=== PATIENT | male | born 1960 | race African-American/Black ===

== ENCOUNTER 2022-01-17 00:19 | Emergency (ER) | payer OTHER ==
[~2022-01-17] VITALS: Ht 185.4 cm; Wt 81.8 kg
[~2022-01-17 00:19] MED LIST: NOCURR
[2022-01-17] MEDS ORDERED: SODIUM CHLORIDE 0.9% 1,000 ML IV ONE (00:45)
[2022-01-17] MEDS ORDERED: LevETIRAcetam 1,000 MG in DEXTROSE 5%-WATER 100 ML IV ONE (00:45)
[2022-01-17 01:02] LABS: BASOPHILS % (AUTO) 0.6 % (0.0-2.0); EOSINOPHILS % (AUTO) 0 % (1.0-6.0); HEMOGLOBIN 11.9 g/dL (13.5-17.5); LYMPHOCYTES # (AUTO) 0.3 K/uL (1.0-4.8); LYMPHOCYTES % (AUTO) 4.1 % (22.0-44.0); MEAN CORPUSCULAR HEMOGLOBIN 34.7 pg (26.0-34.0); MEAN CORPUSCULAR HGB CONC 34.2 G/dL (31.0-37.0); MEAN CORPUSCULAR VOLUME 102 fL (80-100); MONOCYTES # (AUTO) 0.8 K/uL (0.1-1.0); MONOCYTES % (AUTO) 12.6 % (2.0-9.0); NEUTROPHILS # (AUTO) 5.3 K/uL (1.8-7.7); NEUTROPHILS % (AUTO) 82.7 % (40.0-70.0); PLATELET COUNT (AUTO) 203 K/uL (150-450); RED BLOOD CELL COUNT(AUTO) 3.44 MIL/uL (4.50-5.90); RED CELL DISTRIBUTION WIDTH 14.7 % (11.5-14.5)
[2022-01-17 01:09] LABS: ANION GAP 8 mmol/L (8-16); CALCIUM, TOTAL 9.1 mg/dL (8.8-10.5); CARBON DIOXIDE 26 mmol/L (22-29); CHLORIDE 102 mmol/L (98-107); CREATININE 1.35 mg/dL (0.60-1.30); GLUCOSE,RANDOM 138 mg/dL (70-110); POTASSIUM 4.1 mmol/L (3.5-5.1); SODIUM SERUM 136 mmol/L (136-145); UREA NITROGEN, BLOOD 7 mg/dL (7-18)
[2022-01-17 01:14] LABS: GLOMERULAR FILTR. RATE CALC > 60 mL/min (>60)
[2022-01-17 01:15] LABS: ALANINE AMINOTRANSFERASE 112 U/L (12-78); ALBUMIN 3.5 g/dL (3.4-5.0); ALKALINE PHOSPHATASE 150 U/L (46-116); ASPARTATE AMINOTRANSFERASE 150 U/L (15-37); BILIRUBIN,TOTAL 0.7 mg/dL (0.1-1.0); TOTAL PROTEIN, SERUM 8.7 g/dL (6.4-8.2)
[2022-01-17 01:19] LABS: LACTIC ACID 3.6 mmol/L (0.4-2.0)
[2022-01-17 01:48] LABS: COVID AG,FIA SOURCE NASAL SWAB
[2022-01-17 02:10] LABS: INFLUENZA TYPE A NEGATIVE FOR TYPE A (NEGATIVE); INFLUENZA TYPE B NEGATIVE FOR TYPE B (NEGATIVE)
[2022-01-17 04:54] VITALS: BP 182/89
== END 2022-01-17 05:15 | disposition home or self-care (01) ==
LOC: EMS 00:20
DX: R56.9 Unspecified convulsions (principal); F17.210 Nicotine dependence, cigarettes, uncomplicated; Z98.890 Other specified postprocedural states; Z20.822 Contact with and (suspected) exposure to COVID-19
CPT/HCPCS: 99285; 96365; 71045; 87426; 80053; 82962; 83605; 85025; 87804; 36415; 93005; J0712; J7060; J7030

== ENCOUNTER 2023-05-22 13:02 | Inpatient (IN) | payer OTHER ==
[~2023-05-22] VITALS: Ht 185.4 cm; Wt 79.8 kg
[~2023-05-22 13:02] MED LIST changes: +LEVE750T10 PO; -NOCURR
[2023-05-22] MEDS ORDERED: ASPI81TA39 PO (15:07)
[2023-05-22] MEDS ORDERED: AMLO5TAB4 PO (15:08)
[2023-05-22] MEDS ORDERED: CLOP75TA60 PO (15:08)
[2023-05-22] MEDS ORDERED: PANT40TA54 PO (15:09)
[2023-05-22] MEDS ORDERED: ACET650S14 PR (15:10)
[2023-05-22] MEDS ORDERED: BISA10SU61 PR (15:11)
[2023-05-22] MEDS ORDERED: MAGN-169 PO (15:12)
[2023-05-22] MEDS ORDERED: ZOLP5TAB2 PO (15:13)
[2023-05-22] MEDS ORDERED: LEVE750T4 PO (15:15)
[2023-05-22] MEDS ORDERED: ACET-2247 PO (15:17)
[2023-05-22 21:00] VITALS: BP 196/103; PULSE 70; RESP 18; TEMP 98.3; O2SAT 100
[2023-05-22 21:30] VITALS: BP 179/99; PULSE 77; RESP 18; O2SAT 100
[2023-05-22] MEDS ORDERED: ACETAMINOPHEN 325 MG TABLET PO PRN (22:00)
[2023-05-22] MEDS ORDERED: BISACODYL 10 MG RECTAL RECTAL SUPPOSITORY PR PRN (22:15)
[2023-05-22] MEDS ORDERED: DOCUSATE SODIUM 100 MG CAPSULE PO SCH (22:15)
[2023-05-22] MEDS: SENNOSIDES 8.6 MG TABLET PO SCH (22:54)
[2023-05-22] MEDS: DOCUSATE SODIUM 100 MG CAPSULE PO SCH (22:54)
[2023-05-22] MEDS: LevETIRAcetam 250 MG TABLET PO SCH (22:55)
[2023-05-22] MEDS: HydrALAZINE HCL 20 MG/ML VIAL IVP PRN (22:56)
[2023-05-22] MEDS: ETHYL ALCOHOL 62% ANTISEPTIC NASAL SANITIZER 0.6 ML AMPUL NASAL SCH (22:59)
[2023-05-22] MEDS: ATORVASTATIN CALCIUM 20 MG TABLET PO SCH (23:00)
[2023-05-22 23:13] VITALS: BP 179/99; PULSE 77; RESP 18; O2SAT 100
[2023-05-23 06:12] VITALS: BP 157/87; PULSE 74
[2023-05-23] MEDS: PANTOPRAZOLE SODIUM 40 MG DR TABLET PO SCH (07:56)
[2023-05-23] MEDS: AmLODIPine BESYLATE 5 MG TABLET PO SCH (07:56)
[2023-05-23] MEDS: CLOPIDOGREL BISULFATE 75 MG TABLET PO SCH (07:56)
[2023-05-23] MEDS: ASPIRIN 81 MG CHEWABLE TABLET PO SCH (07:56)
[2023-05-23] MEDS: 0.9% SODIUM CHLORIDE 10 ML SYRINGE IVP SCH (08:02)
[2023-05-23 08:28] VITALS: BP 140/88; PULSE 78; RESP 18; TEMP 98.4; O2SAT 98
[2023-05-23 08:33] VITALS: O2SAT 98
[2023-05-23 08:58] LABS: BASOPHILS % (AUTO) 0.6 % (0.0-2.0); EOSINOPHILS % (AUTO) 0.5 % (1.0-6.0); HEMOGLOBIN 12.7 g/dL (13.5-17.5); MEAN CORPUSCULAR HEMOGLOBIN 34.3 pg (26.0-34.0); MEAN CORPUSCULAR HGB CONC 34.2 G/dL (31.0-37.0); MEAN CORPUSCULAR VOLUME 100 fL (80-100); MONOCYTES # (AUTO) 0.8 K/uL (0.1-1.0); MONOCYTES % (AUTO) 17.9 % (2.0-9.0); NEUTROPHILS # (AUTO) 2.7 K/uL (1.8-7.7); PLATELET COUNT (AUTO) 253 K/uL (150-450); RED BLOOD CELL COUNT(AUTO) 3.69 MIL/uL (4.50-5.90); RED CELL DISTRIBUTION WIDTH 13.2 % (11.5-14.5); WHITE BLOOD COUNT (AUTO) 4.6 K/uL (4.5-11.0)
[2023-05-23 09:08] LABS: ALANINE AMINOTRANSFERASE 90 U/L (12-78); ALBUMIN 3.3 g/dL (3.4-5.0); ALKALINE PHOSPHATASE 68 U/L (46-116); ANION GAP 11 mmol/L (8-16); ASPARTATE AMINOTRANSFERASE 67 U/L (15-37); BILIRUBIN,TOTAL 0.6 mg/dL (0.1-1.0); CALCIUM, TOTAL 8.9 mg/dL (8.8-10.5); CARBON DIOXIDE 24 mmol/L (22-29); CHLORIDE 98 mmol/L (98-107); CREATININE 1.14 mg/dL (0.60-1.30); GLOMERULAR FILTR. RATE CALC > 60 mL/min (>60); GLUCOSE,RANDOM 124 mg/dL (70-110); POTASSIUM 3.6 mmol/L (3.5-5.1); SODIUM SERUM 133 mmol/L (136-145); TOTAL PROTEIN, SERUM 8.9 g/dL (6.4-8.2); UREA NITROGEN, BLOOD 9 mg/dL (7-18)
[2023-05-23] MEDS ORDERED: AmLODIPine BESYLATE 5 MG TABLET PO SCH (11:00)
[2023-05-23 20:12] VITALS: BP 161/93; PULSE 70; RESP 18; TEMP 98; O2SAT 100
[2023-05-23 20:27] VITALS: O2SAT 100
[2023-05-24 02:35] VITALS: BP 150/89; PULSE 69; RESP 20; O2SAT 98
[2023-05-24 08:00] VITALS: BP 152/87; PULSE 71; RESP 19; TEMP 98.3; O2SAT 99
[2023-05-24 19:47] VITALS: BP 173/88; PULSE 64; RESP 16; TEMP 98.1; O2SAT 99
[2023-05-24] MEDS: HydrALAZINE HCL 10 MG TABLET PO PRN (19:50)
[2023-05-24 20:13] VITALS: O2SAT 99
[2023-05-25 02:06] VITALS: BP 124/92; PULSE 67
[2023-05-25 08:00] VITALS: BP 156/89; PULSE 72; RESP 18; TEMP 98.4; O2SAT 98
[2023-05-25] MEDS: AmLODIPine BESYLATE 10 MG TABLET PO SCH (08:16)
[2023-05-25 09:10] VITALS: O2SAT 98
[2023-05-25 19:54] VITALS: BP 185/83; PULSE 71; RESP 19; TEMP 97.8; O2SAT 98
[2023-05-25 20:42] VITALS: O2SAT 97
[2023-05-25 22:00] VITALS: BP 158/86; PULSE 68
[2023-05-26 07:40] VITALS: BP 162/96; PULSE 76; RESP 18; TEMP 98; O2SAT 100
[2023-05-26] MEDS: DOCUSATE SODIUM 250 MG CAPSULE PO SCH (07:47)
[2023-05-26 08:39] VITALS: BP 149/76; PULSE 67
[2023-05-26 09:39] VITALS: O2SAT 100
[2023-05-26] MEDS: ZOLPIDEM TARTRATE 5 MG TABLET PO PRN (20:21)
[2023-05-26 21:00] VITALS: BP 143/55; PULSE 53; RESP 18; TEMP 98.1; O2SAT 97
[2023-05-27] MEDS: MAGNESIUM HYDROXIDE SUSPENSION 30 ML UDCUP PO PRN (06:06)
[2023-05-27 08:00] VITALS: BP 137/71; PULSE 52; RESP 18; TEMP 97.5; O2SAT 100
[2023-05-27] MEDS: LOSARTAN POTASSIUM 25 MG TABLET PO SCH (08:00)
[2023-05-27 08:05] VITALS: PULSE 68
[2023-05-27 20:01] VITALS: BP 149/80; PULSE 51; RESP 18; TEMP 98.7; O2SAT 100
[2023-05-27 20:48] VITALS: O2SAT 100
[2023-05-28] MEDS ORDERED: ATOR20TA PO (05:04)
[2023-05-28] MEDS ORDERED: DOCU-412 PO (05:05)
[2023-05-28 08:00] VITALS: BP 124/78; PULSE 92; RESP 18; TEMP 98.2; O2SAT 96
[2023-05-28] MEDS ORDERED: AMLO-258 PO (17:49)
[2023-05-28 20:00] VITALS: BP 134/67; PULSE 91; RESP 19; TEMP 98.2; O2SAT 97
[2023-05-28 20:05] VITALS: O2SAT 97
[2023-05-28] MEDS: SENNOSIDES 8.6 MG TABLET PO SCH (20:21)
[2023-05-29 08:00] VITALS: BP 140/82; PULSE 65; RESP 18; TEMP 98.3; O2SAT 100
[2023-05-29 08:18] LABS: ANION GAP 9 mmol/L (8-16); CALCIUM, TOTAL 8.6 mg/dL (8.8-10.5); CARBON DIOXIDE 24 mmol/L (22-29); CHLORIDE 97 mmol/L (98-107); CREATININE 1.21 mg/dL (0.60-1.30); GLOMERULAR FILTR. RATE CALC > 60 mL/min (>60); GLUCOSE,RANDOM 136 mg/dL (70-110); POTASSIUM 3.9 mmol/L (3.5-5.1); SODIUM SERUM 130 mmol/L (136-145); UREA NITROGEN, BLOOD 11 mg/dL (7-18)
[2023-05-29 08:19] VITALS: O2SAT 98
[2023-05-29 20:34] VITALS: BP 138/58; PULSE 57; RESP 19; TEMP 98.5; O2SAT 100
[2023-05-29 21:13] VITALS: O2SAT 100
[2023-05-30] VITALS (14 sets, daily range): BP systolic 122–151; BP diastolic 60–91; PULSE 70–97; RESP 18–20; TEMP 98.3–99.3; O2SAT 98–100
[2023-05-31 08:00] VITALS: BP 129/78; PULSE 84; RESP 18; TEMP 98.8; O2SAT 100
[2023-05-31 13:01] VITALS: BP 129/78; PULSE 84; RESP 18; TEMP 98.8; O2SAT 100
[2023-05-31 19:43] VITALS: BP 137/77; PULSE 74; RESP 18; TEMP 98.4; O2SAT 100
[2023-06-01 00:56] VITALS: O2SAT 100
[2023-06-01 08:00] VITALS: BP 124/82; PULSE 77; RESP 18; TEMP 98.6; O2SAT 100
[2023-06-01 11:07] VITALS: BP 124/82; PULSE 77; RESP 18; TEMP 98.6; O2SAT 100
[2023-06-01 20:00] VITALS: BP 136/68; PULSE 70; RESP 18; TEMP 98.9; O2SAT 99
[2023-06-01 21:00] VITALS: BP 136/68; PULSE 70; RESP 18; TEMP 98.9; O2SAT 99
[2023-06-02 06:47] LABS: BASOPHILS % (AUTO) 1.2 % (0.0-2.0); EOSINOPHILS % (AUTO) 1.6 % (1.0-6.0); HEMATOCRIT 33.7 % (41-53); HEMOGLOBIN 11.7 g/dL (13.5-17.5); LYMPHOCYTES % (AUTO) 23.1 % (22.0-44.0); MEAN CORPUSCULAR HEMOGLOBIN 33.8 pg (26.0-34.0); MEAN CORPUSCULAR HGB CONC 34.7 G/dL (31.0-37.0); MEAN CORPUSCULAR VOLUME 98 fL (80-100); MONOCYTES # (AUTO) 0.9 K/uL (0.1-1.0); MONOCYTES % (AUTO) 20.5 % (2.0-9.0); NEUTROPHILS # (AUTO) 2.4 K/uL (1.8-7.7); NEUTROPHILS % (AUTO) 53.6 % (40.0-70.0); PLATELET COUNT (AUTO) 323 K/uL (150-450); RED BLOOD CELL COUNT(AUTO) 3.45 MIL/uL (4.50-5.90); RED CELL DISTRIBUTION WIDTH 12.8 % (11.5-14.5); WHITE BLOOD COUNT (AUTO) 4.4 K/uL (4.5-11.0)
[2023-06-02 08:00] VITALS: BP 129/71; PULSE 65; RESP 18; TEMP 98.6; O2SAT 99
[2023-06-02 10:45] LABS: ANION GAP 7 mmol/L (8-16); CALCIUM, TOTAL 8.8 mg/dL (8.8-10.5); CARBON DIOXIDE 27 mmol/L (22-29); CHLORIDE 99 mmol/L (98-107); CREATININE 1.21 mg/dL (0.60-1.30); GLOMERULAR FILTR. RATE CALC > 60 mL/min (>60); GLUCOSE,RANDOM 118 mg/dL (70-110); POTASSIUM 4.8 mmol/L (3.5-5.1); SODIUM SERUM 133 mmol/L (136-145); UREA NITROGEN, BLOOD 14 mg/dL (7-18)
[2023-06-02 20:15] VITALS: BP 118/71; PULSE 71; RESP 19; TEMP 98.9; O2SAT 100
[2023-06-02 20:20] VITALS: O2SAT 100
[2023-06-02] MEDS: SODIUM CHLORIDE 1 GM TABLET PO SCH (20:41)
[2023-06-03 08:05] VITALS: BP 127/79; PULSE 72; RESP 18; TEMP 98.6; O2SAT 98
[2023-06-03 08:58] VITALS: O2SAT 98
[2023-06-03 20:40] VITALS: BP 137/78; PULSE 68; RESP 18; TEMP 98.2; O2SAT 100
[2023-06-04 07:40] VITALS: BP 125/70; PULSE 71; RESP 18; TEMP 98.8; O2SAT 100
[2023-06-04 09:05] VITALS: BP 128/74; PULSE 75; RESP 18; TEMP 98.6; O2SAT 98
[2023-06-04 09:08] LABS: ANION GAP 12 mmol/L (8-16); CALCIUM, TOTAL 8.9 mg/dL (8.8-10.5); CARBON DIOXIDE 22 mmol/L (22-29); CHLORIDE 101 mmol/L (98-107); CREATININE 1.31 mg/dL (0.60-1.30); GLOMERULAR FILTR. RATE CALC > 60 mL/min (>60); GLUCOSE,RANDOM 190 mg/dL (70-110); POTASSIUM 3.9 mmol/L (3.5-5.1); SODIUM SERUM 135 mmol/L (136-145); UREA NITROGEN, BLOOD 13 mg/dL (7-18)
[2023-06-04 09:52] VITALS: O2SAT 98
[2023-06-04] MEDS ORDERED: ASPI-1450 PO (10:00)
[2023-06-04] MEDS ORDERED: DOCU-412 PO (10:00)
[2023-06-04] MEDS ORDERED: LEVE250T PO (10:00)
[2023-06-04] MEDS ORDERED: PANT-31 PO (10:00)
[2023-06-04] MEDS ORDERED: AMLO-258 PO (10:00)
[2023-06-04] MEDS ORDERED: ATOR20TA65 PO (10:00)
[2023-06-04] MEDS ORDERED: LOSA-417 PO (10:00)
[2023-06-04] MEDS ORDERED: SENN-277 PO (10:00)
[2023-06-04] MEDS ORDERED: CLOP75TA60 PO (10:00)
== END 2023-06-04 12:35 | disposition home or self-care (01) | DRG 58 ==
LOC: 2WR 20:29
PROVIDERS: ADMIT Physical Medicine & Rehabilitation; ATTEND Physical Medicine & Rehabilitation
DX: G81.94 Hemiplegia, unspecified affecting left nondominant side (principal); I63.531 Cerebral infarction due to unspecified occlusion or stenosis of right posterior cerebral artery; I63.543 Cerebral infarction due to unspecified occlusion or stenosis of bilateral cerebellar arteries; E46 Unspecified protein-calorie malnutrition; E87.1 Hypo-osmolality and hyponatremia; G93.89 Other specified disorders of brain; G40.909 Epilepsy, unspecified, not intractable, without status epilepticus; Z20.822 Contact with and (suspected) exposure to COVID-19; R13.10 Dysphagia, unspecified; I10 Essential (primary) hypertension; D64.9 Anemia, unspecified; R74.8 Abnormal levels of other serum enzymes; I16.1 Hypertensive emergency; E78.5 Hyperlipidemia, unspecified; F17.200 Nicotine dependence, unspecified, uncomplicated; R13.12 Dysphagia, oropharyngeal phase; E87.6 Hypokalemia; K59.00 Constipation, unspecified; Z87.820 Personal history of traumatic brain injury; Z79.82 Long term (current) use of aspirin; Z68.23 Body mass index [BMI] 23.0-23.9, adult; Z79.899 Other long term (current) drug therapy; Z79.01 Long term (current) use of anticoagulants
CPT/HCPCS: 80048; 80053; 85025; 87081; 92507; 92523; 92526; 93970; 97110; 97112; 97116; 97163; 97167; 97530; 97535; 99366

== ENCOUNTER 2023-06-29 05:14 | Inpatient (IN) | payer OTHER ==
[~2023-06-29] VITALS: Ht 182.9 cm; Wt 82.0 kg
[~2023-06-29 05:14] MED LIST changes: +AMLO-258 PO; +ASPI-1450 PO; +ASPI81TA39 PO; +ATOR20TA PO; +ATOR20TA65 PO; +CLOP75TA60 PO; +DOCU-412 PO; +LEVE250T PO; -LEVE750T10 PO; +LEVE750T4 PO; +LOSA-417 PO; +MAGN-169 PO; +PANT-31 PO; +PANT40TA54 PO; +SENN-277 PO
[2023-06-29] MEDS ORDERED: AmLODIPine BESYLATE 5 MG TABLET PO ONE (05:30)
[2023-06-29 05:57] LABS: BASOPHILS % (AUTO) 0.9 % (0.0-2.0); EOSINOPHILS % (AUTO) 0.6 % (1.0-6.0); HEMATOCRIT 38.9 % (41-53); HEMOGLOBIN 13.2 g/dL (13.5-17.5); LYMPHOCYTES # (AUTO) 1.2 K/uL (1.0-4.8); LYMPHOCYTES % (AUTO) 21.1 % (22.0-44.0); MEAN CORPUSCULAR HEMOGLOBIN 33.6 pg (26.0-34.0); MEAN CORPUSCULAR HGB CONC 33.9 G/dL (31.0-37.0); MEAN CORPUSCULAR VOLUME 99 fL (80-100); MONOCYTES # (AUTO) 0.7 K/uL (0.1-1.0); MONOCYTES % (AUTO) 11.3 % (2.0-9.0); NEUTROPHILS # (AUTO) 3.9 K/uL (1.8-7.7); NEUTROPHILS % (AUTO) 66.1 % (40.0-70.0); PLATELET COUNT (AUTO) 312 K/uL (150-450); RED BLOOD CELL COUNT(AUTO) 3.93 MIL/uL (4.50-5.90); RED CELL DISTRIBUTION WIDTH 13.6 % (11.5-14.5); WHITE BLOOD COUNT (AUTO) 5.8 K/uL (4.5-11.0)
[2023-06-29 06:05] LABS: ANION GAP 12 mmol/L (8-16); CALCIUM, TOTAL 8.9 mg/dL (8.8-10.5); CARBON DIOXIDE 25 mmol/L (22-29); CHLORIDE 103 mmol/L (98-107); CREATININE 1.35 mg/dL (0.60-1.30); GLOMERULAR FILTR. RATE CALC > 60 mL/min (>60); GLUCOSE,RANDOM 105 mg/dL (70-110); POTASSIUM 3.6 mmol/L (3.5-5.1); SODIUM SERUM 140 mmol/L (136-145); UREA NITROGEN, BLOOD 6 mg/dL (7-18)
[2023-06-29 06:13] LABS: PROTHROMBIN TIME 10.2 SEC (9.4-11.6)
[2023-06-29 06:15] LABS: TROPONIN I-HIGH SENSITIVITY 6 ng/L (<76)
[2023-06-29 06:20] LABS: LACTIC ACID 3.8 mmol/L (0.4-2.0)
[2023-06-29] MEDS: HydrALAZINE HCL 20 MG/ML VIAL IVP ONE (06:24)
[2023-06-29] MEDS: LORazepam 2 MG/ML VIAL IVP ONE (06:25)
[2023-06-29] MEDS: LevETIRAcetam 750 MG in DEXTROSE 5%-WATER 100 ML IV ONE (06:25)
[2023-06-29] MEDS: SODIUM CHLORIDE 0.9% 1,000 ML IV ONE (06:26)
[2023-06-29] MEDS: LevETIRAcetam 1,000 MG in DEXTROSE 5%-WATER 100 ML IV ONE (06:27)
[2023-06-29 06:29] LABS: ALANINE AMINOTRANSFERASE 16 U/L (12-78); ALBUMIN 3.6 g/dL (3.4-5.0); ALKALINE PHOSPHATASE 94 U/L (46-116); ASPARTATE AMINOTRANSFERASE 22 U/L (15-37); BILIRUBIN,TOTAL 0.5 mg/dL (0.1-1.0); CREATINE KINASE, TOTAL ONLY 393 U/L (39-308); TOTAL PROTEIN, SERUM 9.6 g/dL (6.4-8.2)
[2023-06-29 06:42] LABS: ALCOHOL, URINE DRUG SCREEN NEGATIVE (NEGATIVE); AMPHET/METH SCREEN,URINE NEGATIVE (NEGATIVE); APPEARANCE,URINE CLEAR (CLEAR); BARBITURATE SCREEN, URINE NEGATIVE (NEGATIVE); BENZODIAZEPINES SCREEN,URINE NEGATIVE (NEGATIVE); BILIRUBIN,URINE NEGATIVE (NEGATIVE); CANNABINOID SCREEN,URINE POSITIVE (NEGATIVE); COCAINE SCREEN,URINE POSITIVE (NEGATIVE); COLOR,URINE COLORLESS (YELLOW); GLUCOSE, URINE (UA) NEGATIVE (NEGATIVE); KETONES,URINE NEGATIVE (NEGATIVE); LEUKOCYTE ESTERASE ,URINE NEGATIVE (NEGATIVE); METHADONE SCREEN, URINE NEGATIVE (NEGATIVE); NITRATE,URINE NEGATIVE (NEGATIVE); OCCULT BLOOD,URINE NEGATIVE (NEGATIVE); OPIATE SCREEN,URINE NEGATIVE (NEGATIVE); PHENCYCLIDINE SCREEN,URINE NEGATIVE (NEGATIVE); PROTEIN,URINE NEGATIVE (NEGATIVE); UROBILINOGEN,URINE <=1.0 mg/dL (<=1.0)
[2023-06-29] MEDS: SODIUM CHLORIDE 0.9% 1,600 ML IV ONE (07:11)
[2023-06-29] MEDS: PIPERACILLIN/TAZO 3.375 GM/D5W 50 ML IV ONE (08:27)
[2023-06-29] MEDS ORDERED: MAGNESIUM HYDROXIDE SUSPENSION 30 ML UDCUP PO PRN (08:45)
[2023-06-29] MEDS ORDERED: ONDANSETRON HCL 4 MG/2 ML VIAL IVP PRN (08:45)
[2023-06-29] MEDS ORDERED: 0.9% SODIUM CHLORIDE 10 ML SYRINGE IVP PRN (08:45)
[2023-06-29] MEDS ORDERED: ACETAMINOPHEN 325 MG TABLET PO PRN (08:45)
[2023-06-29] MEDS: LevETIRAcetam 250 MG TABLET PO SCH (09:18)
[2023-06-29] MEDS: DOCUSATE SODIUM 100 MG CAPSULE PO SCH (09:18)
[2023-06-29] MEDS: LOSARTAN POTASSIUM 25 MG TABLET PO SCH (09:19)
[2023-06-29] MEDS: CLOPIDOGREL BISULFATE 75 MG TABLET PO SCH (09:19)
[2023-06-29] MEDS: AmLODIPine BESYLATE 10 MG TABLET PO SCH (09:19)
[2023-06-29] MEDS: PANTOPRAZOLE SODIUM 40 MG/VIAL IVP SCH (09:19)
[2023-06-29] MEDS: ASPIRIN 81 MG CHEWABLE TABLET PO SCH (09:19)
[2023-06-29 20:30] VITALS: BP 153/84; PULSE 69; RESP 18; TEMP 98.4
[2023-06-29] MEDS: ATORVASTATIN CALCIUM 20 MG TABLET PO SCH (20:49)
[2023-06-30] VITALS: BP 138/83; PULSE 70; RESP 17; TEMP 98.1
[2023-06-30 04:00] VITALS: BP 125/73; PULSE 68; RESP 18; TEMP 98.1
[2023-06-30 07:48] VITALS: BP 116/85; PULSE 71; RESP 19; TEMP 98.5
[2023-06-30 07:50] LABS: BASOPHILS % (AUTO) 0.9 % (0.0-2.0); EOSINOPHILS % (AUTO) 2.2 % (1.0-6.0); HEMATOCRIT 35.7 % (41-53); HEMOGLOBIN 12.2 g/dL (13.5-17.5); LYMPHOCYTES % (AUTO) 25.6 % (22.0-44.0); MEAN CORPUSCULAR HEMOGLOBIN 33.3 pg (26.0-34.0); MEAN CORPUSCULAR HGB CONC 34.1 G/dL (31.0-37.0); MEAN CORPUSCULAR VOLUME 98 fL (80-100); MONOCYTES # (AUTO) 0.8 K/uL (0.1-1.0); MONOCYTES % (AUTO) 19.8 % (2.0-9.0); NEUTROPHILS # (AUTO) 2.1 K/uL (1.8-7.7); NEUTROPHILS % (AUTO) 51.5 % (40.0-70.0); PLATELET COUNT (AUTO) 282 K/uL (150-450); RED BLOOD CELL COUNT(AUTO) 3.67 MIL/uL (4.50-5.90); RED CELL DISTRIBUTION WIDTH 13.4 % (11.5-14.5)
[2023-06-30 08:06] LABS: ANION GAP 11 mmol/L (8-16); CALCIUM, TOTAL 8.8 mg/dL (8.8-10.5); CARBON DIOXIDE 24 mmol/L (22-29); CHLORIDE 104 mmol/L (98-107); CREATININE 1.24 mg/dL (0.60-1.30); GLOMERULAR FILTR. RATE CALC > 60 mL/min (>60); GLUCOSE,RANDOM 108 mg/dL (70-110); POTASSIUM 3.2 mmol/L (3.5-5.1); SODIUM SERUM 139 mmol/L (136-145); UREA NITROGEN, BLOOD 6 mg/dL (7-18)
[2023-06-30] MEDS: OxyCODONE HCL/ACETAMINOPHEN 5-325 MG TABLET PO PRN ×2 (08:17→10:35)
[2023-06-30 11:32] VITALS: BP 101/77; PULSE 81; RESP 18; TEMP 98.4
[2023-06-30 19:30] VITALS: BP 131/80; PULSE 73; RESP 18; TEMP 98.3
[2023-06-30] MEDS: POTASSIUM CHLORIDE 10 MEQ ER TABLET PO ONE (21:41)
[2023-07-01 00:44] VITALS: BP 121/59; PULSE 75; RESP 18; TEMP 98.4
[2023-07-01 05:07] VITALS: BP 129/65; PULSE 76; RESP 18; TEMP 98.1
[2023-07-01 07:05] VITALS: BP 144/69; PULSE 72; RESP 18; TEMP 98.3
[2023-07-01 07:10] LABS: EOSINOPHILS % (AUTO) 2.8 % (1.0-6.0); HEMATOCRIT 35.8 % (41-53); HEMOGLOBIN 11.9 g/dL (13.5-17.5); LYMPHOCYTES # (AUTO) 1.2 K/uL (1.0-4.8); LYMPHOCYTES % (AUTO) 26.1 % (22.0-44.0); MEAN CORPUSCULAR HEMOGLOBIN 32.9 pg (26.0-34.0); MEAN CORPUSCULAR HGB CONC 33.3 G/dL (31.0-37.0); MEAN CORPUSCULAR VOLUME 99 fL (80-100); MONOCYTES % (AUTO) 22.8 % (2.0-9.0); NEUTROPHILS # (AUTO) 2.1 K/uL (1.8-7.7); NEUTROPHILS % (AUTO) 46.3 % (40.0-70.0); PLATELET COUNT (AUTO) 280 K/uL (150-450); RED BLOOD CELL COUNT(AUTO) 3.62 MIL/uL (4.50-5.90); RED CELL DISTRIBUTION WIDTH 13.5 % (11.5-14.5); WHITE BLOOD COUNT (AUTO) 4.5 K/uL (4.5-11.0)
[2023-07-01 07:13] LABS: ANION GAP 9 mmol/L (8-16); CALCIUM, TOTAL 8.9 mg/dL (8.8-10.5); CARBON DIOXIDE 26 mmol/L (22-29); CHLORIDE 105 mmol/L (98-107); CREATININE 1.23 mg/dL (0.60-1.30); GLOMERULAR FILTR. RATE CALC > 60 mL/min (>60); GLUCOSE,RANDOM 107 mg/dL (70-110); POTASSIUM 3.5 mmol/L (3.5-5.1); SODIUM SERUM 140 mmol/L (136-145); UREA NITROGEN, BLOOD 8 mg/dL (7-18)
[2023-07-01 10:50] VITALS: BP 138/86; PULSE 74; RESP 18; TEMP 98.2
[2023-07-01 15:15] VITALS: BP 148/16; PULSE 67; RESP 18; TEMP 98
[2023-07-01] MEDS ORDERED: LEVE500T8 PO (16:22)
[2023-07-01] MEDS ORDERED: LEVE1000 PO (17:18)
[2023-07-01] MEDS ORDERED: LevETIRAcetam 500 MG TABLET PO SCH (21:00)
== END 2023-07-01 20:15 | disposition home or self-care (01) | DRG 53 ==
LOC: EMS 05:14 → AHU 06:27 → 5N 19:04
PROVIDERS: ADMIT Internal Medicine; ATTEND Internal Medicine
DX: G40.909 Epilepsy, unspecified, not intractable, without status epilepticus (principal); E78.00 Pure hypercholesterolemia, unspecified; F17.210 Nicotine dependence, cigarettes, uncomplicated; I10 Essential (primary) hypertension; Z86.73 Personal history of transient ischemic attack (TIA), and cerebral infarction without residual deficits; Z86.11 Personal history of tuberculosis
CPT/HCPCS: 70450; 71045; 80048; 80053; 80307; 81003; 82550; 83605; 84484; 85025; 85610; 85730; 87040; 93005; 99285; C9113; J0360; J0712; J2060; J2543; J7030; J7060; 36415-L1; 36415-TC